=== PATIENT | female | born 1960 | race Caucasian/White ===

== ENCOUNTER 2020-01-13 07:43 | Outpatient (CLI) | payer BC, SELFPAY ==
--- NOTE | 2020-01-13 07:53 | MM_ITS ---
WS: [id number] BILATERAL DIGITAL SCREENING MAMMOGRAPHY WITH CAD CLINICAL INFORMATION: SCREENING HISTORY: Screening mammogram. No current complaints. COMPARISON: October 02, 2017 TECHNIQUE: Bilateral CC and MLO views. FINDINGS: The breasts are composed of heterogeneous fibroglandular density tissue, which can limit the detectio n of small underlying mass lesions. No suspicious mass, asymmetry, calcifications, or architectural d istortion. No evidence of malignancy. MM/[id number] IMPRESSION: BI-RADS: 1-Negative FOLLOW UP: 1 Year Follow-up Recommend return to annual screening mammography.
== END 2020-01-13 07:44 | disposition home or self-care (01) ==
LOC: RADSHAW 07:49
PROVIDERS: PCP Family Medicine; Visit Provider Registered Nurse
DX: Z12.31 Encounter for screening mammogram for malignant neoplasm of breast (principal)
CPT/HCPCS: 77067

== ENCOUNTER 2022-09-09 08:20 | Outpatient (CLI) | payer BC, SELFPAY ==
--- NOTE | 2022-09-09 08:30 | MM_ITS ---
WS: [id number] BILATERAL SCREENING DIGITAL TOMOSYNTHESIS MAMMOGRAM WITH CAD HISTORY: SCREENING COMPARISON: 01/13/2020 and 10/02/2017 Bilateral CC and MLO views with tomosynthesis and synthetic mammography submitted. Computer aided det ection analyzed. Breast composition: The breasts are heterogeneously dense, which may obscure small masses. No suspici ous masses, microcalcifications or architectural distortion. MM/[id number] IMPRESSION: BI-RADS: 1-Negative FOLLOW UP: 1 Year Follow-up
== END 2022-09-09 08:21 | disposition home or self-care (01) ==
PROVIDERS: PCP Family Medicine; Visit Provider Registered Nurse
DX: Z12.31 Encounter for screening mammogram for malignant neoplasm of breast (principal)
CPT/HCPCS: 77063; 77067

== ENCOUNTER → 2024-06-28 13:29 | Outpatient (BNVA) | payer MEDICARE, SELFPAY | PROVIDERS: PCP Family Medicine; Visit Provider Surgery | DX: K92.1 Melena (principal) | CPT/HCPCS: 99204 ==

== ENCOUNTER 2024-07-07 10:09 | Day surgery (SDC) | payer MEDICARE, SELFPAY ==
[2024-07-07] MEDS: sodium chloride 0.9% 500 ML 15 ML IV (10:30)
[2024-07-07 10:31] VITALS: BP 131/89; PULSE 109; RESP 18; TEMP 36.7; O2SAT 97; BMI 25.7
[2024-07-07 11:10] LABS: Anion Gap 14.6 (5-19); Blood Urea Nitrogen 12 mg/dL (8-23); Calcium 9.8 mg/dL (8.5-10.5); Carbon Dioxide 27 mmol/L (22-29); Chloride 103 mmol/L (98-107); Creatinine Clr Calc Pharmacy 66.4457; Glomerular Filtration Rate 123.8 mL/min (90-130); Glucose 105 mg/dL (65-115); Osmolality Calculated 292 mOsm/kg (285-295); Potassium 3.6 mmol/L (3.5-5.1); Sodium 141 mmol/L (136-145)
--- NOTE | 2024-07-07 12:16 | P.ANESASSM_ITS ---
Pre-Anesthetic Assessment Height/Weight: Height 1.63 m Weight 68.039 kg achezia Temp Pulse Resp BP Pulse Ox O2 Del Method 98.0 F 109 H 18 131/89 97 Room Air 07/07/24 10:31 07/07/24 10:31 07/07/24 10:31 07/07/24 10:31 hemat 07/07/24 10:31 07/07/24 10:31 Preop Diagnosis: Hematachezia Operation Date: 07/07/24 11:15 Proposed Procedures p Colonoscopy 60293, G0105, K92.1(Not Applicable) - Sanchez Lima, DO Was Beta Franchesca taken within 24 hours: N/A Was Clonidine taken within 24 hours: N/A Last intake: Intake Last Liquid Date 07/06/24 Last Liquid Time 21:00 Last Solid Date 07/05/24 Last Solid Time 23:30 Social No alcohol and No tobacco Exam alert, oriented x 3, clear to auscultation bilaterally and regular rate & rhythm Airway Submandibular: within normal limits Cervical ROM: within normal limits Mallampati: Class II Dentition: false History/ROS No significant history except as noted and No significant complaints Pulmonary None reported CV/HEM Hypertension None reported Hepatic None reported Metabolic None reported Musc/skel None reported Neuropsych None reported Anesthetic Plan ASA status: 2 Anesthesia: Anesthesia Evaluation and MAC Risk of > 500 ml blood loss (7ml/kg in children): No Medications/Allergies Home Medications Medication Instructions Recorded Confirmed Last Taken Type hydrochlorothiazide 12.5 mg capsule 12.5 mg PO DAILY 05/12/24 07/05/24 07/06/24 History potassium chloride 20 mEq 20 meq PO DAILY PRN low K+ 05/12/24 07/07/24 1 Week Ago History tablet,extended release ~06/30/24 oxybutynin chloride 5 mg 5 mg PO DAILY #90 tabs 06/11/24 07/05/24 07/06/24 Rx tablet,extended release 24 hr Allergies Allergy/AdvReac Type Severity Reaction Status Date / Time lisinopril Allergy Unknown Unknown Verified 07/05/24 10:43 metoprolol Allergy Unknown Unknown Verified 07/05/24 10:43 nebivolol Allergy Unknown Unknown Verified 07/05/24 10:43 NSAIDS (Non-Steroidal Allergy Unknown Unknown Verified 07/05/24 10:43 Anti-Inflamma miperdine Allergy Unknown Unknown Uncoded 07/05/24 10:43 PFSH Anesthesia Family History Mother Hypertension Diabetes Stroke High cholesterol Brother Hypertension Diabetes Sister Breast cancer Heart disease Hypertension Diabetes Grandfather Hypertension Stroke Social History Smoking and tobacco/nicotine status: never used tobacco/nicotine Data Anesthesia 07/07/24 10:36 BMP 07/07/24 10:36 Sodium 141 Potassium 3.6 Chloride 103 Carbon Dioxide 27 BUN 12 Creatinine 0.5 Glucose 105 Calcium 9.8 Cardiac Studies: 2 No Data to Display
--- NOTE | 2024-07-07 12:37 | W.PM.OPSUD ---
Surgery/Procedure H&P Update DATE OF PROCEDURE: July 07, 2024 DATE H&P PERFORMED: 06/28/24 H&P UPDATE INFORMATION: I have reviewed H&P completed within last 30 days, I have examined patient prior to procedure and No changes to prior documentation PREOP DIAGNOSIS: Hematachezia PLANNED PROCEDURE: Operation Date: 07/07/24 11:15 Proposed Procedures p Colonoscopy 15083, G0105, K92.1(Not Applicable) - Sanchez Lima DO
[2024-07-07 12:59] VITALS: BP 150/82; PULSE 79; RESP 20; TEMP 36.4; O2SAT 96
[2024-07-07 13:15] VITALS: BP 146/92; PULSE 75; RESP 18; O2SAT 97
--- NOTE | 2024-07-07 13:46 | ANE.PACU2 ---
Inpatient post-anesthesia follow up: Airway intact: Yes Vital signs: Temperature 97.5 F Pulse Rate 75 Respiratory Rate 18 Blood Pressure 146/92 Pulse Oximetry 97 Oxygen Delivery Me thod Room Air Oxygen Flow Rate 3 Fraction of Inspir ed Oxygen Hydration adequate: Yes Nausea and vomiting: No Pain level: 1 Mental status: Baseline
== END 2024-07-07 13:46 | disposition home or self-care (01) ==
PROVIDERS: Student in an Organized Health Care Education/Training Program; PCP Family Medicine; Visit Provider Surgery
PROC: 0DJD8ZZ Inspection of Lower Intestinal Tract, Via Natural or Artificial Opening Endoscopic (ICD-10-PCS; CPT 45378; principal; 2024-07-07 11:15)
DX: K92.1 Melena (principal); K57.30 Diverticulosis of large intestine without perforation or abscess without bleeding; I10 Essential (primary) hypertension
CPT/HCPCS: 36415; 45378; 80048; J2704; J7040

== ENCOUNTER 2024-09-07 09:21 | Observation (INO) | payer MEDICARE, SELFPAY ==
[2024-09-06 11:18] LABS: Bilirubin Urine Negative (Negative); Blood Urine Negative (Negative); Glucose Urine UA Negative (Normal); Ketones Urine Negative (Negative); Leukocyte Esterase Urine Negative (Negative); Nitrate Urine Negative (Negative); Protein Urine Negative (Negative); Specific Gravity, Urine 1.012 (1.005-1.030); Urine Appearance Clear (CLEAR); Urine Color Yellow (Yellow); Urobilinogen Urine 0.2 mg/dL (Negative); pH Urine 7.5 (5-7)
[2024-09-06 11:23] LABS: Add Urine Microscopic? YES; Bacteria Urine None Seen /hpf; Hyaline Casts Urine 0-4 /lpf; RBC Urine 0-2 /hpf (0-2); Squamous Epithelial Cell Urine 0-5 /hpf (0-5); WBC Urine 0-5 /hpf (0-5)
[2024-09-07] VITALS (18 sets, daily range): BP systolic 89–113; BP diastolic 54–70; PULSE 69–94; RESP 16; TEMP 36.6–36.9; O2SAT 90–94; BMI 24.9
--- NOTE | 2024-09-07 06:17 | ANES.PREANE2 ---
Pre-Anesthetic Assessment Height/Weight: Height 5 ft 4 in Weight 145 lb O2 Del Method Room Air 09/07/24 06:11 Preop Diagnosis: rectocele Operation Date: 09/07/24 07:00 Proposed Procedures p Posterior Colporrhaphy 28390, 60242,N81.6(Not Applicable) - Gage Cruz MD s Sacrospinous Ligament Suspension Sacrospinous Fixation(Not Applicable) - Gage Cruz MD Was Beta Franchesca taken within 24 hours: N/A Was Clonidine taken within 24 hours: N/A Last intake: Intake Last Liquid Date 09/06/24 Last Liquid Time 21:00 Last Solid Date 09/06/24 Last Solid Time 20:00 Social No alcohol and No tobacco Exam alert, oriented x 3, clear to auscultation bilaterally and regular rate & rhythm Airway Submandibular: within normal limits Cervical ROM: within normal limits Mallampati: Class III Dentition: false Anesthetic Plan ASA status: 2 Anesthesia: General Other: No prior issues with anesthesia, recent colonoscopy under MAC anesthesia without problems NPO since yesterday History of hypertension on amlodipine Denies any pulmonary issues Patient came in with her recent lab work from an outside facility and they are acceptable for procedure Type and screen performed Plan for general anesthesia Medications/Allergies Home Medications ?Medication ?Instructions ?Recorded ?Confirmed ?Last Taken ?Type hydrochlorothiazide 12.5 mg capsule 12.5 mg PO DAILY 05/12/24 09/06/24 09/06/24 History potassium chloride 20 mEq 20 meq PO DAILY PRN low K+ 05/12/24 09/06/24 07/08/24 History tablet,extended release oxybutynin chloride 5 mg 5 mg PO DAILY #90 tabs 06/11/24 09/06/24 09/06/24 Rx tablet,extended release 24 hr amlodipine 5 mg tablet 5 mg PO BEDTIME 09/06/24 09/06/24 09/05/24 History citalopram 10 mg tablet (Celexa) 10 mg PO BEDTIME 09/06/24 09/06/24 09/05/24 History multivitamin with minerals-folic 1 tab PO DAILY 09/06/24 09/06/24 09/06/24 History acid 80 mcg chewable tablet (Centrum Adult 50 Plus) Allergies Allergy/AdvReac Type Severity Reaction Status Date / Time lisinopril Allergy Unknown Unknown Verified 08/26/24 07:50 metoprolol Allergy Unknown Unknown Verified 08/26/24 07:50 nebivolol Allergy Unknown Unknown Verified 08/26/24 07:50 NSAIDS (Non-Steroidal Allergy Unknown Unknown Verified 08/26/24 07:50 Anti-Inflamma meperidine Allergy Unknown Verified 09/06/24 10:35 [facility] Anesthesia Family History Mother Hypertension Diabetes Stroke High cholesterol Brother Hypertension Diabetes Sister Breast cancer Heart disease Hypertension Diabetes Grandfather Hypertension Stroke Social History Smoking and tobacco/nicotine status: never used tobacco/nicotine Data Anesthesia Urine 09/06/24 Range/Units 11:00 Urine Color Yellow (Yellow) Urine Appearance Clear (CLEAR) Urine pH 7.5 (5-7) Ur Specific [place] 1.012 (1.005-1.030) Urine Protein Negative (Negative) Urine Glucose (UA) Negative (Normal) Urine Ketones Negative (Negative) Urine Nitrate Negative (Negative) Urine Bilirubin Negative (Negative) Ur Leukocyte Esterase Negative (Negative) Urine RBC 0-2 (0-2) /hpf Urine WBC 0-5 (0-5) /hpf Cardiac Studies: No Data to Display
[2024-09-07] MEDS: sodium chloride 0.9% 1,000 ML 30 ML IV (06:26)
[2024-09-07] MEDS: scopolamine 1 mg PATCH 1 PATCH TRANSDERMA (06:26)
[2024-09-07] MEDS: ceFAZolin 2,000 mg SDV 2000 MG IVP (06:28)
--- NOTE | 2024-09-07 07:03 | W.PM.OPSUD ---
Surgery/Procedure H&P Update DATE OF PROCEDURE: September 07, 2024 DATE H&P PERFORMED: 08/26/24 H&P UPDATE INFORMATION: I have reviewed H&P completed within last 30 days, I have examined patient prior to procedure and No changes to prior documentation PREOP DIAGNOSIS: rectocele PLANNED PROCEDURE: Operation Date: 09/07/24 07:00 Proposed Procedures p Posterior Colporrhaphy 87401, 28553,N81.6(Not Applicable) - Gage rCuz MD s Sacrospinous Ligament Suspension Sacrospinous Fixation(Not Applicable) - Gage Cruz MD
[2024-09-07] MEDS: lidocaine-epi 2% PF 1:200,000 20 mL SDV 10 ML INJECTION (07:43)
--- NOTE | 2024-09-07 08:49 | W.PM.BPON ---
Date of Procedure: 09/07/24 Surgeon: Gage Cruz MD Alarm Signal Operator(s): Procedure(s) performed: Posterior colporrhaphy, sacrospinous fixation Findings of the procedure(s): Rectocele, vaginal apex descent Estimated blood loss: 240 mL Specimen(s) removed: Post-operative diagnosis: Status post posterior colporrhaphy and sacrospinous fixation
--- NOTE | 2024-09-07 08:50 | PM.OP ---
Operative Report Date of procedure: September 07, 2024 Pre-op diagnosis: Rectocele stage III Post-op diagnosis: same Procedure done: Posterior colporrhaphy Sacrospinous fixation Surgeon: Gage Cruz MD Estimated blood loss (mL): 240 IV fluids (mL): 700 Procedure: After obtaining informed consent, the patient was taken to the operating room and placed in the supine position, given general anesthesia, and prepped and draped in sterile fashion. The abdomen, vulva and vagina were prepped and draped in a sterile manner. A time out procedure was performed. Exam under anesthesia performed. A Rivera catheter was placed in the bladder. A 2% lidocaine with epinephrine solution was infiltrated under the posterior vaginal mucosa midline and into the perineal body. An inverted triangle incision was cut in the perineum. The posterior vaginal wall was opened vertically and midline up to the apex of the rectocele. The cut edges were held and splayed laterally with a series of Allis clamp. The open vaginal mucosa was then dissected laterally with a combination of sharp and blunt dissection, exposing the perirectal fascia. A finger is inserted through the incision in the posterior vaginal mucosa, dissecting out the rectovaginal space (RVS). The right rectal pillar (RRP) is identified. The rectal pillar can be bluntly perforated either with the finger and with the tip of a long Clary clamp. A Bretierneyy-Navrui retractor is used for exposing the rectovaginal space in order to enter the pararectal space with retraction of the cardinal ligament, vagina, and rectum. Displacing the rectum to the left and the cardinal ligament and ureter anteriorly. A sponge dissector is used to bluntly dissect the sacrospinous ligament removing areolar tissue. The ischial spine was palpated directly, and a area approximately 2 cm medial to the spine was selected for insertion of the Anchorsure transvaginal sacrospinous fixation system. One end of the suture of Anchoresure system inserted through the sacrospinous ligament is placed through the muscular layer of the vagina. In a similar manner, the second suture is placed. The opposite end of the suture in the sacrospinous ligament is left free and held on a small hemostat. Then traction on this suture will draw the vaginal vault directly to the ligament, where a square knot affixes it to the sacrospinous ligament. After the augusto stich is tied the second safety stich is tied. Then the colporrhaphy/vaginal repair is carried out in routine fashion. The perirectal fascia was then reapproximated with interrupted #2-0 Vicryl sutures to draw the lateral folds together and tuck the rectocele back. Deep interrupted sutures of #0 Vicryl were used to reapproximate the fibers of the levator ani muscles. The excess vaginal mucosa was trimmed. The posterior vaginal wall was closed with a running locked #0 Vicryl to the hymenal tags. The superficial perineal muscles were closed with running unlocked #0 Vicryl and the perineal skin was closed with running subcuticular #2-0 Vicryl. A vaginal packing was placed to provide support during the healing process. Excellent hemostasis was obtained. Sponge, lap, needle, and instrument counts were correct times three. The patient was taken to the recovery room, awake and in stable condition.
--- NOTE | 2024-09-07 09:25 | ANE.PACU2 ---
Inpatient post-anesthesia follow up: Airway intact: Yes Vital signs: Temperature 97.8 F Pulse Rate 70 Respiratory Rate 16 Blood Pressure 98/67 Pulse Oximetry 94 Oxygen Delivery Me thod Room Air Oxygen Flow Rate Fraction of Inspir ed Oxygen Hydration adequate: Yes Nausea and vomiting: No Pain level: 1 Mental status: Baseline
[2024-09-07] MEDS: docusate sodium 100 mg Capsule PO ×2 (09:49→17:50)
[2024-09-07] MEDS: HYDROcodone-acetaminophen 5-325 mg Tablet PO ×2 (09:49→21:34)
[2024-09-07] MEDS: dextrose 5%-lactated ringers 1,000 ML 125 ML IV ×2 (09:50→17:50)
[2024-09-07] MEDS: citalopram 20 mg Tablet 10 MG PO (21:37)
[2024-09-08] MEDS: dextrose 5%-lactated ringers 1,000 ML 125 ML IV (02:17)
--- NOTE | 2024-09-08 05:08 | PC.NURSE ---
vaginal packing removed at 0500. Pt tolerated well.
[2024-09-08 05:13] VITALS: BP 115/65; PULSE 82; RESP 15; TEMP 36.6; O2SAT 94
[2024-09-08 05:29] LABS: Hematocrit 33.8 % (36-47); Mean Corpuscular HGB Conc 33.4 g/dL (30-55); Mean Corpuscular Hemoglobin 30.8 pg (27-33); Mean Corpuscular Volume 92.1 fl (85-98); Mean Platelet Volume 10.2 fL (7.4-10.4); Platelet Count 196 10^3/cmm (157-399); Red Blood Count 3.67 10^6/uL (3.85-5.65); Red Cell Distribution Width 13.3 % (12.1-15.1); White Blood Count 16.11 10^3/uL (3.29-11.43)
--- NOTE | 2024-09-08 07:51 | P.DS_ITS ---
Discharge Providers [employer] Date of Admission: 09/07/24 09:21 Date of Discharge: 09/08/24 Attending Provider at Admission: Gage Cruz MD Attending Provider at Discharge: Gage Cruz MD Primary Care Provider: Buffy Quintanilla DO Hospital Course Hospital Course : 64-year-old female with a history of rectocele and vaginal apex descent. Was admitted for planned posterior colporrhaphy and sacrospinous fixation. The procedures were performed without complication. Overnight observation was uneventful. She is afebrile hemodynamically stable postoperative day 1. Ambulating without difficulty. Tolerating diet well. She was counseled regarding pelvic rest for 6 weeks (no sex, no tampons, no vaginal douches). Return to the emergency room if any fever, increased bleeding or pain. Patient was advised on heavy lifting limitations to 10 pounds, and avoid food items that can give her constipation. Physical Exam Narrative: GA: Alert and oriented ?3. HEENT: WNL. Heart: Regular rate and rhythm. Lungs: Clear to auscultation bilaterally. Abdomen: Bowel sounds present, nontender. 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 Extremities: No edema, no cyanosis, no calves pain. Urinary Catheter Management: Rivera: Cath Placed During This Visit: yes, but has since been removed by the nurse Reason for Continuing Indwelling Catheter: Decision to DC Catheter Urinary Catheter Date of Insertion: 09/07/24 Urinary Catheter Time of Insertion: 07:35 Date Urinary Catheter Removed: 09/08/24 Time Urinary Catheter Discontinued: 05:00 Discharge Data Studies Completed and Pending Laboratory Results WBC 16.11 10^3/uL (3.29-11.43) H 09/08/24 05:20 RBC 3.67 10^6/uL (3.85-5.65) L 09/08/24 05:20 Hgb 11.30 g/dL (11.27-16.99) 09/08/24 05:20 Hct 33.8 % (36-47) L 09/08/24 05:20 MCV 92.1 fl (85-98) 09/08/24 05:20 MCH 30.8 pg (27-33) 09/08/24 05:20 MCHC 33.4 g/dL (30-55) 09/08/24 05:20 RDW 13.3 % (12.1-15.1) 09/08/24 05:20 Plt Count 196 10^3/cmm (157-399) 09/08/24 05:20 MPV 10.2 fL (7.4-10.4) 09/08/24 05:20 Urine Color Yellow (Yellow) 09/06/24 11:00 Urine Appearance Clear (CLEAR) 09/06/24 11:00 Urine pH 7.5 (5-7) 09/06/24 11:00 Ur Specific [place] 1.012 (1.005-1.030) 09/06/24 11:00 Urine Protein Negative (Negative) 09/06/24 11:00 Urine Glucose (UA) Negative (Normal) 09/06/24 11:00 Urine Ketones Negative (Negative) 09/06/24 11:00 Urine Blood Negative (Negative) 09/06/24 11:00 Urine Nitrate Negative (Negative) 09/06/24 11:00 Urine Bilirubin Negative (Negative) 09/06/24 11:00 Urine Urobilinogen 0.2 mg/dL (Negative) 09/06/24 11:00 Ur Leukocyte Esterase Negative (Negative) 09/06/24 11:00 Urine RBC 0-2 /hpf (0-2) 09/06/24 11:00 Urine WBC 0-5 /hpf (0-5) 09/06/24 11:00 Ur Squamous Epith Cells 0-5 /hpf (0-5) 09/06/24 11:00 Amorphous Sediment Not Reportable 09/06/24 11:00 Urine Bacteria None seen /hpf (NONE) 09/06/24 11:00 Hyaline Casts 0-4 /lpf H 09/06/24 11:00 Blood Type O Positive 09/06/24 06:25 Rho(D) Type Rh positive 09/06/24 06:25 Antibody Screen Negative 09/06/24 06:25 Vitals Last Vital Signs Temp 98 F 09/08/24 05:13 Pulse 82 09/08/24 05:13 Resp 15 09/08/24 05:13 BP 115/65 09/08/24 05:13 Pulse Ox 94 09/08/24 05:13 O2 Del Method Room Air 09/08/24 05:13 Results Labs OB ([facility]): Blood Type O Positive 09/06/24 Antibody Screen Negative 09/06/24 Hct 33.8 % (36-47) L 09/08/24 Hgb 11.30 g/dL (11.27-16.99) 09/08/24 Rho(D) Type Rh positive 09/06/24 Plt Count 196 10^3/cmm (157-399) 09/08/24 Discharge Plan Discharge Patient Disposition: Home Condition: Stable Prescriptions: New hydrocodone-acetaminophen 5-325 mg tablet 1 tab PO Q4H PRN (Reason: pain) Qty: 20 0RF acetaminophen 325 mg capsule 325 mg PO Q4H PRN (Reason: fever or pain) Qty: 60 0RF docusate sodium [Colace] 100 mg capsule 100 mg PO BID Qty: 60 0RF metronidazole 500 mg tablet 500 mg PO BID 14 Days Qty: 28 0RF Continued hydrochlorothiazide 12.5 mg capsule 12.5 mg PO DAILY potassium chloride 20 mEq tablet extended release 20 meq PO DAILY PRN (Reason: low K+) oxybutynin chloride 5 mg tablet extended release 24hr 5 mg PO DAILY Qty: 90 3RF amlodipine 5 mg Tablet 5 mg PO BEDTIME citalopram [Celexa] 10 mg Tablet 10 mg PO BEDTIME Centrum Adult 50 Plus 80 mcg Tablet,Chewable 1 tab PO DAILY Discharge Orders: Discharge Order (Routine); Ordered 09/08/24 Ordered By: Gage Cruz Referrals: Gage Cruz MD [Physician] - 10/15/24 8:15 am (* Your 6 week post op is on 10/15/2024 at 8:15am) Merle Gonzalez APN, WHNP [Nurse Practitioner] - 09/23/24 9:15 am (* Your 2 week post op is with Merle Gonzalez on 09/23/2024 at 9:15) Discharge Diet: Soft Mechanical Discharge Activity: Limit activity as instructed Patient Instructions: Acute Wound Care (DC), Posterior Vaginal Repair (DC), Opioid Safety, Post Anesthesia Care Activity Restrictions/Additional Instructions: 1. Please call [facility] on next working day to make your post-operative appointment in 2 weeks. 2. Please stay home until you come back to the clinic on first post- hospatilization check up. 3. Please follow instructions on your medications CAREFULLY. 4. If you have abdominal incision, do not cover it unless dressing is necessary because of drainage. OK to shower, but avoid bath. Leave steri-strips until they fall off. If they are still on one week after surgery, you may remove them. 5. If you had vaginal surgery or vaginal repair, Dr. Cruz may instruct you to take SITZ bath. 6. Yellow, blood tinged odorous vaginal discharge is usually normal after hysterectomy or vaginal surgeries. 7. No SEXUAL INTERCOURSE, tampons, or douches until you are completely released from the post-operative care. 8. Avoid constipation by eating right and maybe using some Metamucil or Milk of Magnesia. 9. All prescription refills are given during the working hours. Please do no wait till it runs out. Call the clinic at [phone] before your medication runs out. The clinic will get in touch with your doctor to prescribe medications if necessary. 10. Please remain within 40 mile radius from our hospital because emergencies do happen now and then during the post-operative period. 11. If you have stairs at home, take one step at a time slowly and minimize the number of trips. It helps to stay in one floor for the next few days. No lifting except what you can lift by one hand until you are released from the post-operative care. 12. Driving is discouraged until you are well healed. It may be 3-4 weeks before you feel strong enough to drive. You should be able to turn and look through the rear window without pain and you should be able to push the brake pedal very hard without pain before you drive. No fast rules, but SAFETY should be your primary concern. DO NOT drive if you are on sedating medications such as narcotics. 13. Call the clinic (during working hours) to make urgent appointment or go to the Emergency room, if any of the following occurs: i. Vaginal bleeding becomes heavy, more than a period. ii. Incision becomes red and sore, or drains pus. iii. Your TEMPERATURE is over 100.4F or you have chill. iv. IV site becomes red and swollen (a little ``knot?? is usually OK) v. Persistent nausea and vomiting vi. Persistent constipation or diarrhea vii. Rash or allergic reaction to medications. Discharge Attestations [employer] Time Spent in Discharge Care*: greater than 30 min Coding Level of Care Code Acute Code for Chg Fwd
[2024-09-08 09:00] VITALS: BP 116/67; PULSE 80; RESP 16; TEMP 36.8; O2SAT 95
[2024-09-08 09:27] VITALS: BP 115/69; PULSE 68; RESP 17; TEMP 36.8; O2SAT 98
[2024-09-08] MEDS: hydroCHLOROthiazide 25 mg Tablet 12.5 MG PO (09:33)
[2024-09-08] MEDS: oxybutynin chloride XL 5 MG TABLET PO (09:33)
[2024-09-08] MEDS: acetaminophen 325 mg Tablet 650 MG PO (09:33)
== END 2024-09-08 09:28 | disposition home or self-care (01) ==
LOC: OBGYN 09:23
PROVIDERS: Admitting Provider Obstetrics & Gynecology; PCP Family Medicine; Visit Provider Obstetrics & Gynecology
PROC: (CPT 57250; principal; 2024-09-07 07:00)
PROC: (CPT 57282; 2024-09-07 07:00)
DX: N81.6 Rectocele (principal); Z79.899 Other long term (current) drug therapy; Z88.8 Allergy status to other drugs, medicaments and biological substances; Z90.710 Acquired absence of both cervix and uterus
CPT/HCPCS: 57250; 57282; 36415; 81001; 85027; 86850; 86900; 96374; C1713; G0378; J0131; J0690; J1100; J1200; J2405; J2704; J3010; J3490; J7030; J7121